=== PATIENT | male | born 1950 | race Caucasian/White ===

== ENCOUNTER 2017-11-27 22:22 | Emergency (ER) | END 2017-11-28 05:07 | disposition home or self-care (01) ==

== ENCOUNTER 2018-02-16 13:10 | Inpatient (IN) | END 2018-02-18 15:30 | DRG 65 ==

== ENCOUNTER 2018-11-17 10:35 | Emergency (ER) | payer OTHER ==
[~2018-11-17] VITALS: Ht 175.3 cm; Wt 84.2 kg
[~2018-11-17 10:35] MED LIST: AMLO5TAB4 PO; BENA10TA4 PO; METF500T24 PO
[2018-11-17 10:40] VITALS: Ht 175.3 cm; Wt 84.2 kg
--- NOTE | 2018-11-17 12:38 | ERD ---
ER Documentation Chief Complaint Chief Complaint LEFT FOOT WOUND SENT BY PMD HPI This is a very pleasant 68-year-old male history of diabetes who presents with 2 days of an ulceration and wound to the dorsum of the left foot. The patient denies any trauma. Mild surrounding erythema but no significant warmth or tenderness, no drainage or discharge. No streaking up the leg. He took a picture and send it to his media marketing coordinator who told him to go to the emergency room. He has an appointment with his media marketing coordinator tomorrow. Patient denies any fevers, chills, myalgias, body aches. No other systemic signs or symptoms. ROS All systems reviewed and are negative except as per history of present illness. Medications Home Meds Active Scripts Sulfamethoxazole/Trimethoprim* (Bactrim Ds* Tablet) 1 Each Tablet, 1 TAB PO BID, #14 TAB Prov:CHASIDY IRAHETA MD 11/17/18 Cephalexin* (Keflex*) 500 Mg Capsule, 500 MG PO QID for 7 Days, CAP Prov:CHASIDY IRAHETA MD 11/17/18 Reported Medications Benazepril Hcl* (Benazepril Hcl*) 10 Mg Tablet, 10 MG PO DAILY, #30 TAB 02/16/18 Amlodipine Besylate* (Norvasc*) 5 Mg Tablet, 5 MG PO DAILY, TAB 02/16/18 Metformin Hcl* (Metformin Hcl*) 500 Mg Tablet, 500 MG PO WITH BREAKFAST DINNE, #60 TAB 02/16/18 Allergies Allergies: Coded Allergies: No Known Allergy (Verified , 11/17/18) PMhx/Soc History of Surgery: Yes Anesthesia Reaction: No Hx Neurological Disorder: No Hx Respiratory Disorders: No Hx Cardiac Disorders: No Hx Psychiatric Problems: No Hx Miscellaneous Medical Probl: Yes Hx Alcohol Use: Yes Hx Substance Use: No Hx Tobacco Use: Yes FmHx Family History: diabetes Physical Exam Vitals Vital Signs Date Temp Pulse Resp B/P (MAP) Pulse Ox O2 O2 Flow FiO2 Time Delivery Rate 11/17/18 98.5 82 18 142/66 97 10:40 (91) Physical Exam General: Well developed, well nourished, no acute distress Head: Normocephalic, atraumatic. Eyes: EOM intact ENT: Moist mucous membranes Neck: Full ROM Respiratory: No respiratory distress Cardiovascular: Well perfused distally Abdominal: Nondistended : Deferred MSK: The patient has an ulceration that is very superficial involving the dermal layer of the dorsum of the left foot approximately 1-1/2 cm in diameter. There is mild surrounding erythema but no significant warmth or tenderness, no lymphangitic spread, no drainage or discharge. The patient has 2+ dorsalis pedis and posterior tibial pulses. Neurologic: Alert and oriented, moving all extremities, normal speech, steady gait Skin: As noted above Psych: Normal mood Result Diagram: 11/17/18 1247 11/17/18 1247 Results 24 hrs Laboratory Tests Test 11/17/18 12:47 White Blood Count 9.3 10^3/ul Red Blood Count 4.03 10^6/ul Hemoglobin 12.2 g/dl Hematocrit 37.3 % Mean Corpuscular Volume 92.6 fl Mean Corpuscular Hemoglobin 30.3 pg Mean Corpuscular Hemoglobin Concent 32.7 g/dl Red Cell Distribution Width 13.4 % Platelet Count 237 10^3/UL Mean Platelet Volume 10.7 fl Immature Granulocytes % 0.400 % Neutrophils % 67.6 % Lymphocytes % 20.6 % Monocytes % 9.4 % Eosinophils % 1.5 % Basophils % 0.5 % Nucleated Red Blood Cells % 0.0 /100WBC Immature Granulocytes # 0.040 10^3/ul Neutrophils # 6.3 10^3/ul Lymphocytes # 1.9 10^3/ul Monocytes # 0.9 10^3/ul Eosinophils # 0.1 10^3/ul Basophils # 0.1 10^3/ul Nucleated Red Blood Cells # 0.0 10^3/ul Sodium Level 141 mmol/L Potassium Level 4.9 mmol/L Chloride Level 107 mmol/L Carbon Dioxide Level 28 mmol/L Anion Gap 6 Blood Urea Nitrogen 13 mg/dl Creatinine 0.76 mg/dl Est Glomerular Filtrat Rate mL/min > 60 mL/min Glucose Level 149 mg/dl Calcium Level 9.5 mg/dl Procedures/MDM LAB INTERPRETATION: I reviewed the laboratory testing and it shows no evidence of acute process MEDICAL DECISION MAKING: I spoke to the patient's referring media marketing coordinator he would like to request laboratory testing. I explained to the physician that the exam is very consistent with localized irritation rather than cellulitis and that oral antibiotics and outpatient follow-up would be appropriate. He would prefer laboratory testing and will see patient in his office tomorrow. I explained this to the patient and he is understanding and this seems reasonable. No systemic signs or symptoms concerning for lymphangitic spread deep space infection or significant cellulitis. Patient is otherwise well-appearing without systemic signs or symptoms. No evidence of sepsis. Stable vital signs. No fever. ER COURSE: * Patient continues to be well-appearing and laboratory testing is normal. Patient is a for discharge. CONSULTATION: Podiatry: Dr. Pereira as above DISPOSITION PLAN: The patient does not have an identifiable emergent medical condition that warrants inpatient hospitalization at this time. The patient is deemed safe for discharge with outpatient follow-up. We discussed follow up with the patient's primary care doctor within 24 to 48 hours as needed. We also discussed return to the emergency room for worsening symptoms or worsening condition. Outpatient referral: Podiatry tomorrow Discharge Medications: Bactrim and Keflex Departure Diagnosis: Primary Impression: Wound of left foot Condition: Stable CHASIDY IRAHETA MD Nov 17, 2018 12:38
[2018-11-17] MEDS ORDERED: SULF1TAB31 PO (13:03)
[2018-11-17] MEDS ORDERED: CEPH-443 PO (13:03)
[2018-11-17 14:05] VITALS: BP 138/65; PULSE 78; RESP 16
== END 2018-11-17 14:10 | disposition home or self-care (01) ==
LOC: E/R 10:35
DX: E11.621 Type 2 diabetes mellitus with foot ulcer (principal); L97.529 Non-pressure chronic ulcer of other part of left foot with unspecified severity; Z87.891 Personal history of nicotine dependence
CPT/HCPCS: 36415; 80048; 85025; 99283